=== PATIENT | male | born 1960 | race African-American/Black ===

== ENCOUNTER → 2023-01-18 | Outpatient (CLI) | payer BC ==
[2023-01-18 16:27] LABS: HCT 53.6 % (39.6-50.0); HGB 16.3 d/dL (13.0-17.0); MCH 32.2 pg (27.0-32.0); MCHC 30.4 d/dL (32.0-37.0); MCV 105.9 FL (80.0-97.0); Mean Platelet Volume 10.9 FL (9.5-12.2); NRBC Per 100 WBC 0 X 10*3/uL (0.00-0.01); Platelet Count 368 X 10*3/uL (140-440); RBC 5.06 X 10*6/uL (4.40-5.60); RDW 13.4 % (11.5-14.5); WBC 6.92 X 10*3/uL (4.50-10.00)
[2023-01-18 16:39] LABS: Blood Urea Nitrogen 20.1 mg/dL (9.0-27.0); Carbon Dioxide 23.6 mmol/L (21.6-31.8); Chloride 101 mmol/L (96-109); Potassium 5.2 mmol/L (3.5-5.5); Sodium 137 mmol/L (135-145)
[2023-01-18 16:54] LABS: Basophils # (M) 0.07 X 10*3/uL (0.00-0.10); Eosinophils # (M) 0.14 X 10*3/uL (0.04-0.35); Lymphocytes # (M) 2.91 X 10*3/uL (0.90-5.00); Macrocytosis (M) 2+; Monocytes # (M) 0.48 X 10*3/uL (0.20-1.00); Neutrophils # (M) 3.32 X 10*3/uL (1.80-7.70); Neutrophils % (M) 48 %
== END | disposition home or self-care (01) ==
LOC: LABWHC1 09:21
PROVIDERS: ATTEND Internal Medicine
DX: Z01.812 Encounter for preprocedural laboratory examination (principal); I48.0 Paroxysmal atrial fibrillation
CPT/HCPCS: 36415; 80051; 82565; 84520; 85025

== ENCOUNTER 2023-01-25 10:06 | Day surgery (SDC) | payer BC ==
[2023-01-22 13:15] VITALS: BMI 33.0
[~2023-01-25 10:06] MED LIST: LACTATED RINGERS 1,000 ML IV SCH; LIDOCAINE 1% (10MG/ML) FOR IV START INTRADERMA PRN
[2023-01-25 10:42] VITALS: TEMP 97.4
[2023-01-25] MEDS ORDERED: PROPOFOL 10 MG/ML 20 ML VIAL IV ONE (11:50)
[2023-01-25] MEDS ORDERED: LIDOCAINE 1% INJ 10MG/ML (20 ML MDV) ONE (11:50)
[2023-01-25 12:50] VITALS: BP 143/88; PULSE 105; RESP 22
--- NOTE | 2023-01-25 13:33 | P.TEE ---
Description of Procedure(s): Procedure performed: Transesophageal Echocardiogram with color flow doppler, pulsed wave doppler and continuous wave doppler Moderate conscious sedation: Moderate conscious sedation was supplied by anesthesia, see separate report. Complications: none Indications: Atrial fibrillation PROCEDURE: After the risks, benefits and alternatives of the above mentioned procedure was explained in detail with the patient, informed consent was obtained. Patient was brought to the lab in a fasting state. Patient was given sedation by anesthesia, see separate report. The throat was sprayed with Hurricane to anesthetize the throat. A lubricated Omni probe was then introduced into the esophagus and stomach and multiple views were obtained. 2D echo with color flow doppler, pulsed wave doppler and continuous wave doppler was utilized. Agitated saline bubbles were injected to assess for any intra- atrial shunt. The probe was then removed. There was thrombus noted and therefore patient no cardioversion was performed. Patient tolerated the procedure well. Patient was transferred to the post procedure area in stable and satisfactory condition. Patient did have new neck mass over last 2 months and therefore recommended to be evaluated either in the ER or with PCP soon. FINDINGS: 1. The aortic valve is tricuspid with normal function. 2. The mitral valve appears be normal with mild to moderate mitral regurgitation. 3. Tricuspid valve to be normal. 4. The interatrial septum is intact. No evidence of PFO. 5. Left atrial appendage has a large amount of smoke and what appears to be a small thrombus. 6. Left ventricle is dilated with left ventricular ejection fraction 10-15%
== END 2023-01-25 12:54 | disposition home or self-care (01) ==
LOC: OR 10:06
PROVIDERS: ATTEND Internal Medicine
DX: I48.0 Paroxysmal atrial fibrillation (principal); I34.0 Nonrheumatic mitral (valve) insufficiency; I11.0 Hypertensive heart disease with heart failure; I50.21 Acute systolic (congestive) heart failure; F17.210 Nicotine dependence, cigarettes, uncomplicated; I48.3 Typical atrial flutter; Z79.01 Long term (current) use of anticoagulants; Z79.899 Other long term (current) drug therapy
CPT/HCPCS: 93312; 93320; 93325

== ENCOUNTER 2023-01-25 12:58 | Emergency (ER) | payer BC ==
--- NOTE | 2023-01-25 13:20 | ED ---
Recheck HPI - General Chief Complaint: Recheck/Abnormal Lab/Rx Stated Complaint: Neck Swelling Time Seen by Provider: 01/25/23 12:59 Source: patient, RN notes reviewed, old records reviewed Mode of arrival: ambulatory Limitations: no limitations - History of Present Illness Initial Comments: This is a 62-year-old male to the emergency department for evaluation. Patient has significant swelling of bilateral lymph nodes of his neck coming in for evaluation of neck swelling and edema today. Patient was seen of stairs for evaluation of his heart, patient is noted that he had significant swelling of both sides of his neck. No significant pain. MD Complaint: other (Significant neck swelling) -: week(s) Symptoms Since Prior Visit: no new symptoms Associated Symptoms: none Treatments Prior to Arrival: other (0) - Related Data Home Medications Medication Instructions Recorded Confirmed Amiodarone [Cordarone] 200 mg PO DAILY 01/22/23 01/25/23 Apixaban [Eliquis] 5 mg PO BID 01/22/23 01/25/23 Metoprolol Succinate (ER) [Toprol 50 mg PO DAILY 01/22/23 01/25/23 Xl] hydroCHLOROthiazide 25 mg PO DAILY 01/22/23 01/25/23 Previous Rx's Medication Instructions Recorded Losartan [Cozaar] 25 mg PO DAILY #90 tab 01/25/23 Allergies Allergy/AdvReac Type Severity Reaction Status Date / Time No Known Allergies Allergy Verified 01/25/23 13:04 Review of Systems ROS Statement: Those systems with pertinent positive or pertinent negative responses have been documented in the HPI. ROS Other: All systems not noted in ROS Statement are negative. Past Medical History Past Medical History: Hypertension Additional Past Medical History / Comment(s): cyst on back History of Any Multi-Drug Resistant Organisms: None Reported Past Surgical History: Joint Replacement Additional Past Surgical History / Comment(s): anabella hip replacements, colonoscopy, Past Anesthesia/Blood Transfusion Reactions: No Reported Reaction Past Psychological History: No Psychological Hx Reported Smoking Status: Former smoker Past Alcohol Use History: Occasional Past Drug Use History: None Reported - Past Family History Mother Family Medical History: No Reported History General Exam Limitations: no limitations General appearance: alert, in no apparent distress Head exam: Present: atraumatic, normocephalic, normal inspection Eye exam: Present: normal appearance, PERRL, EOMI. Absent: scleral icterus, conjunctival injection, periorbital swelling ENT exam: Present: other (sitting significant swelling of neck) Neck exam: Present: normal inspection. Absent: tenderness, meningismus, ly mphadenopathy Respiratory exam: Present: normal lung sounds bilaterally. Absent: respiratory distress, wheezes, rales, rhonchi, stridor Cardiovascular Exam: Present: regular rate, normal rhythm, normal heart sounds. Absent: systolic murmur, diastolic murmur, rubs, gallop, clicks GI/Abdominal exam: Present: soft, normal bowel sounds. Absent: distended, tenderness, guarding, rebound, rigid Extremities exam: Present: normal inspection, full ROM, normal capillary refill. Absent: tenderness, pedal edema, joint swelling, calf tenderness Back exam: Present: normal inspection Neurological exam: Present: alert, oriented X3, CN II-XII intact Psychiatric exam: Present: normal affect, normal mood Skin exam: Present: warm, dry, intact, normal color. Absent: rash Course Vital Signs 01/25/23 01/25/23 01/25/23 13:01 13:51 15:30 Temperature Pulse Rate 97 76 75 Respiratory 18 16 18 Rate Blood Pressure 131/110 130/99 136/95 O2 Sat by Pulse 95 100 97 Oximetry 01/25/23 18:25 Temperature 97.8 F Pulse Rate 94 Respiratory 18 Rate Blood Pressure 142/107 O2 Sat by Pulse 98 Oximetry - Reevaluation(s) Reevaluation #1: 01/25/23 16:41 Medical records reviewed Reevaluation #2: 01/25/23 16:41 Patient symptoms unchanged Reevaluation #3: 01/25/23 16:41 Patient informed results and questions answered Reevaluation #4: 01/25/23 16:41 Was pt. sent in by a medical professional or institution (, PA, MEAT PROCESSOR, urgent care, hospital, or detention...) When possible be specific @ -no Did you speak to anyone other than the patient for history (EMS, parent, family, police, friend...)? What history was obtained from this source @ -no Did you review nursing and triage notes (agree or disagree)? Why? @ -agree Are old charts reviewed (outside hosp., previous admission, EMS record, old EKG, old radiological studies, urgent care reports/EKG's, detention records)? Report findings @ -yes Differential Diagnosis (chest pain, altered mental status, abdominal pain women, abdominal pain men, vaginal bleeding, weakness, fever, dyspnea, syncope, headache, dizziness, GI bleed, back pain, seizure, CVA, palpatations, mental health, musculoskeletal)? @ -prior EKG interpreted by me (3pts min.). @ -no X-rays interpreted by me (1pt min.). @ -no CT interpreted by me (1pt min.). @ -yes U/S interpreted by me (1pt. min.). @ -no What testing was considered but not performed or refused? (CT, X-rays, U/S, labs)? Why? @ -none What meds were considered but not given or refused? Why? @ -none Did you discuss the management of the patient with other professionals (professionals i.e. , PA, MEAT PROCESSOR, lab, RT, psych nurse, oncology social work, rn lactation consultant, teacher, safety patrol officer, case reviewer)? Give summary @ -no Was smoking cessation discussed for >3mins.? @ -no Was critical care preformed (if so, how long)? @ -no Were there social determinants of health that impacted care today? How? (Homelessness, low income, unemployed, alcoholism, drug addiction, transportation, low edu. Level, literacy, decrease access to med. care, intermediate, rehab)? @ -none Was there de-escalation of care discussed even if they declined (Discuss DNR or withdrawal of care, Hospice)? DNR status @ -no What co-morbidities impacted this encounter? (DM, HTN, Smoking, COPD, CAD, Cancer, CVA, ARF, Chemo, Hep., AIDS, mental health diagnosis, sleep apnea, morbid obesity)? @ -none Was patient admitted / discharged? Hospital course, mention meds given and route, prescriptions, significant lab abnormalities, going to OR and other pertinent info. @ - 62 male to the emergency department for evaluation of significantly enlarge d lymph nodes neck swelling and neck enlargement. Patient has no current symptoms here in the ER will be admitted for ENT to see and treat, ENT Dr. Painting did see the patient here in the emergency department and can be discharged home Discharge Undiagnosed new problem with uncertain prognosis? @ -no Drug Therapy requiring intensive monitoring for toxicity (Heparin, Nitro, Insulin, Cardizem)? @ -no Were any procedures done? @ -no Diagnosis/symptom? @ -Bilateral lymphadenopathy Acute, or Chronic, or Acute on Chronic? @ -Acute Uncomplicated (without systemic symptoms) or Complicated (systemic symptoms)? @ -Complicated Side effects of treatment? @ -no Exacerbation, Progression, or Severe Exacerbation? @ -exacerbation Poses a threat to life or bodily function? How? (Chest pain, [place], [place], pneumonia, PE, COPD, DKA, ARF, appy, cholecystitis, CVA, Diverticulitis, Homicidal, Suicidal, threat to staff... and all critical care pts) @ -yes with significant possibility of significant underlying cancer - Consultations Consultation #1: Over SHAUN to agrees to admit this patient Medical Decision Making - Medical Decision Making 62 male to the emergency department for evaluation of significantly enlarged lymph nodes neck swelling and neck enlargement. Patient has no current symptoms here in the ER will be admitted for ENT to see and treat, ENT Dr. Painting did see the patient here in the emergency department and can be discharged home - Lab Data Result diagrams: 01/25/23 13:46 01/25/23 13:46 Lab Results 01/25/23 01/25/23 01/25/23 Range/Units 13:46 13:46 13:46 WBC 8.9 (3.8-10.6) k/uL RBC 4.86 (4.30-5.90) m/uL Hgb 16.2 (13.0-17.5) gm/dL Hct 50.1 (39.0-53.0) % MCV 103.0 H (80.0-100.0) fL MCH 33.3 (25.0-35.0) pg MCHC 32.3 (31.0-37.0) g/dL RDW 13.0 (11.5-15.5) % Plt Count 321 (150-450) k/uL MPV 8.4 Neutrophils % 68 % Lymphocytes % 26 % Monocytes % 4 % Eosinophils % 1 % Basophils % 0 % Neutrophils # 6.0 (1.3-7.7) k/uL Lymphocytes # 2.3 (1.0-4.8) k/uL Monocytes # 0.3 (0-1.0) k/uL Eosinophils # 0.1 (0-0.7) k/uL Basophils # 0.0 (0-0.2) k/uL Macrocytosis Slight PT 11.1 (10.0-12.5) sec INR 1.0 (<1.2) APTT 28.7 (22.0-30.0) sec Sodium 137 (137-145) mmol/L Potassium 5.1 (3.5-5.1) mmol/L Chloride 106 (98-107) mmol/L Carbon Dioxide 20 L (22-30) mmol/L Anion Gap 11 mmol/L BUN 18 (9-20) mg/dL Creatinine 1.08 (0.66-1.25) mg/dL Est GFR (CKD-EPI)AfAm 86 (>60 ml/min/1.73 sqM) Est GFR (CKD-EPI)NonAf 74 (>60 ml/min/1.73 sqM) Glucose 101 H (74-99) mg/dL Calcium 9.9 (8.4-10.2) mg/dL Phosphorus 4.1 (2.5-4.5) mg/dL Magnesium 1.7 (1.6-2.3) mg/dL Total Bilirubin 1.5 H (0.2-1.3) mg/dL AST 39 (17-59) U/L ALT 29 (4-49) U/L Alkaline Phosphatase 91 (38-126) U/L Troponin I (0.000-0.034) ng/mL NT-Pro-B Natriuret Pep 1210 pg/mL Total Protein 8.0 (6.3-8.2) g/dL Albumin 3.9 (3.5-5.0) g/dL TSH 2.410 (0.465-4.680) mIU/L 01/25/23 Range/Units 13:46 WBC (3.8-10.6) k/uL RBC (4.30-5.90) m/uL Hgb (13.0-17.5) gm/dL Hct (39.0-53.0) % MCV (80.0-100.0) fL MCH (25.0-35.0) pg MCHC (31.0-37.0) g/dL RDW (11.5-15.5) % Plt Count (150-450) k/uL MPV Neutrophils % % Lymphocytes % % Monocytes % % Eosinophils % % Basophils % % Neutrophils # (1.3-7.7) k/uL Lymphocytes # (1.0-4.8) k/uL Monocytes # (0-1.0) k/uL Eosinophils # (0-0.7) k/uL Basophils # (0-0.2) k/uL Macrocytosis PT (10.0-12.5) sec INR (<1.2) APTT (22.0-30.0) sec Sodium (137-145) mmol/L Potassium (3.5-5.1) mmol/L Chloride (98-107) mmol/L Carbon Dioxide (22-30) mmol/L Anion Gap mmol/L BUN (9-20) mg/dL Creatinine (0.66-1.25) mg/dL Est GFR (CKD-EPI)AfAm (>60 ml/min/1.73 sqM) Est GFR (CKD-EPI)NonAf (>60 ml/min/1.73 sqM) Glucose (74-99) mg/dL Calcium (8.4-10.2) mg/dL Phosphorus (2.5-4.5) mg/dL Magnesium (1.6-2.3) mg/dL Total Bilirubin (0.2-1.3) mg/dL AST (17-59) U/L ALT (4-49) U/L Alkaline Phosphatase (38-126) U/L Troponin I <0.012 (0.000-0.034) ng/mL NT-Pro-B Natriuret Pep pg/mL Total Protein (6.3-8.2) g/dL Albumin (3.5-5.0) g/dL TSH (0.465-4.680) mIU/L - Radiology Data Radiology results: report reviewed (CT soft tissue neck is likely for ENT mass, lymphadenopathy), image reviewed Disposition Clinical Impression: Neck swelling, Neck mass, Enlarged lymph nodes Disposition: HOME SELF-CARE Condition: Fair Instructions (If sedation given, give patient instructions): Lymphadenopathy (ED) Is patient prescribed a controlled substance at d/c from ED?: No Referrals: Matt Painting MD [STAFF PHYSICIAN] - 1-2 days Time of Disposition: 16:40
[2023-01-25 13:56] LABS: Basophils % (A) 0 %; Eosinophils # (A) 0.1 k/uL (0-0.7); Eosinophils % (A) 1 %; HCT 50.1 % (39.0-53.0); HGB 16.2 gm/dL (13.0-17.5); Lymphocytes # (A) 2.3 k/uL (1.0-4.8); Lymphocytes % (A) 26 %; MCH 33.3 pg (25.0-35.0); MCHC 32.3 g/dL (31.0-37.0); Macrocytosis Slight; Mean Platelet Volume 8.4; Monocytes # (A) 0.3 k/uL (0-1.0); Monocytes % (A) 4 %; Neutrophils % (A) 68 %; Platelet Count 321 k/uL (150-450); RBC 4.86 m/uL (4.30-5.90); WBC 8.9 k/uL (3.8-10.6)
[2023-01-25 14:09] LABS: Partial Thromboplastin Time 28.7 sec (22.0-30.0); Prothrombin Time 11.1 sec (10.0-12.5)
[2023-01-25 14:15] LABS: ALT 29 U/L (4-49); African American GFR (CKD) 86 (>60 ml/min/1.73 sqM); Anion Gap 11 mmol/L; Blood Urea Nitrogen 18 mg/dL (9-20); Carbon Dioxide 20 mmol/L (22-30); Chloride 106 mmol/L (98-107); Glucose 101 mg/dL (74-99); Magnesium 1.7 mg/dL (1.6-2.3); Non-African American GFR(CKD) 74 (>60 ml/min/1.73 sqM); Phosphorus 4.1 mg/dL (2.5-4.5); Sodium 137 mmol/L (137-145); Total Bilirubin 1.5 mg/dL (0.2-1.3)
[2023-01-25 14:24] LABS: NT-Pro-B-Type Natriuretic Pept 1210 pg/mL
[2023-01-25 14:25] LABS: Albumin 3.9 g/dL (3.5-5.0); Calcium 9.9 mg/dL (8.4-10.2); Potassium 5.1 mmol/L (3.5-5.1)
[2023-01-25 14:26] LABS: AST 39 U/L (17-59); Alkaline Phosphatase 91 U/L (38-126)
--- NOTE | 2023-01-25 14:40 | CT ---
EXAMINATION TYPE: CT soft tissue neck wo con DATE OF EXAM: 01/25/2023 COMPARISON: None HISTORY: 62-year-old male Bilateral neck swelling TECHNIQUE: Contiguous axial scanning of the soft tissues of the neck without IV contrast. Coronal and sagittal reconstructions performed. CT DLP: 394.4 mGycm Automated exposure control for dose reduction was used. FINDINGS: Scattered foci of venous air present on both sides of the neck likely air introduced during periphera l line placement. However, there is abnormal soft tissue mass along the right side of the neck measuring 5.9 x 5.2 cm a butting the platysma muscle anteriorly and sternocleidomastoid muscle laterally. There is loss of the intervening fat plane with the sternocleidomastoid. The carotid space immediately. Asymmetrically la rger right submandibular space lymph nodes measures 1.1 cm. Left station 2A adenopathy measuring up to 2.7 cm. Nasopharynx appears clear. Moderate bilateral palatine tonsillar hypertrophy. Epiglottis and prevertebral soft tissues are satisfactory. Possible annular soft tissue narrowing along the level of the vocal folds, axial images 52 and 54. Visualized upper lungs appear clear. Bones: Mild/moderate degenerative disc disease C4-C5. IMPRESSION: 1. BILATERAL STATION 2A LYMPHADENOPATHY MEASURING UP TO 5.9 CM ON THE RIGHT AND 2.7 CM ON THE LEFT. A SYMMETRICALLY LARGER RIGHT SUBMANDIBULAR SPACE NODES MEASURING UP TO 1.1 CM. THE DOMINANT 5.9 CM LESIA L MASS ON THE RIGHT SHOWS LOSS OF THE INTERVENING FAT PLANE WITH THE STERNOCLEIDOMASTOID. IF THIS TUR NS OUT TO BE A NEOPLASTIC ETIOLOGY/METASTATIC DISEASE, UNABLE TO EXCLUDE ALEKSANDR EXTRACAPSULAR SPREAD. 2. SCATTERED FOCI OF VENOUS AIR ALONG BOTH SIDES OF THE NECK LIKELY AIR INTRODUCED DURING PERIPHERAL LINE PLACEMENT.
--- NOTE | 2023-01-25 15:55 | CT ---
EXAMINATION TYPE: CT soft tissue neck w con DATE OF EXAM: 01/25/2023 COMPARISON: Earlier today HISTORY: 62-year-old male with mass and neck swelling, Bilateral neck swelling TECHNIQUE: Contiguous axial scanning of the soft tissues of the neck performed with IV Contrast, anderson ent injected with 100 mL of Isovue 370. Coronal and sagittal reconstructions performed. CT DLP: 417.1 mGycm Automated exposure control for dose reduction was used. FINDINGS: Solid mildly enhancing masses are redemonstrated measuring up to 6.1 cm right gestation to a and eliza sly underestimated on the noncontrast study on the left measuring up to 6.3 cm. Loss of the fat plane with the adjacent. Additional smaller but enlarged lymph nodes are evident on both sides of the upper to mid neck. Again , we note loss of intervening fat plane with the overlying sternocleidomastoid muscle. On the left, a lso loss of the fat plane with the posterior left paraspinal musculature. There is lobulated enlargement of the bilateral palatine tonsils and mucosal space at the junction of the nasopharyngeal and oropharyngeal airway, axial images 57 and 52. Some distortion of the aryepiglottic folds also present axial image 38. Bones: Degenerative change sternoclavicular joints. No osseous destructive process seen. Some scatter ed periodontal disease noted. IMPRESSION: 1. EXTENSIVE UPPER CERVICAL LYMPHADENOPATHY MEASURING UP TO 6.1 CM ON THE RIGHT AND GROSSLY UNDERESTI MATED ON THE NONCONTRAST EXAM EARLIER TODAY ON THE LEFT. MEASURING UP TO 6.3 CM ON THE LEFT. UNABLE T O EXCLUDE EXTRACAPSULAR SPREAD OF NEOPLASM INTO THE OVERLYING STERNOCLEIDOMASTOID MUSCLES ON BOTH STEVE ES AND THE LEFT POSTERIOR PARASPINAL MUSCULATURE ON THE LEFT. 2. SOFT TISSUE THICKENING CERVICAL MUCOSAL SPACE AT THE JUNCTION OF THE NASOPHARYNX AND OROPHARYNX AL YOVANI WITH THICKENING AT THE BILATERAL PALATINE TONSILS. SOME DISTORTION OF THE ARYEPIGLOTTIC FOLDS ALS O PRESENT. THESE MAY CORRESPOND TO SITES OF PRIMARY NEOPLASM. DIRECT VISUALIZATION IS ADVISED.
[2023-01-25] MEDS ORDERED: MORPHINE SULFATE 4 MG/ML SYRINGE IV PRN (16:38)
[2023-01-25] MEDS ORDERED: NALOXONE 0.4 MG/ML 1 ML VIAL IV PRN (16:38)
[2023-01-25] MEDS ORDERED: ONDANSETRON 4 MG/2 ML VIAL IVP PRN (16:38)
[2023-01-25] MEDS ORDERED: SODIUM CHLORIDE 0.9% 1,000 ML IV SCH (16:45)
[2023-01-25 18:43] VITALS: BP 142/107; PULSE 94; RESP 18; TEMP 97.8
[2023-01-26] MEDS ORDERED: PANTOPRAZOLE 40 MG/10 ML VIAL IV SCH (09:00)
--- NOTE | 2023-01-28 02:50 | CONS ---
CONSULTATION REASON FOR THE CONSULTATION: Neck mass. HISTORY OF PRESENT ILLNESS: This patient is a very pleasant 62-year-old male who presented to the emergency room complaining of having shortness of breath and also swelling in his neck. The patient states that the swelling has been there for several months and has apparently increased. He smokes less than a pack of cigarettes per day and states he is definitely going to quit. He denies any difficulty swallowing, any referred otalgia, or hoarseness. The patient states that the swelling initially started out as a small lump on the right side of his neck. He does not have a primary care physician. I was consulted by the emergency room physician after completing my surgical procedures. I therefore saw this patient in the emergency room. A CT scan was performed in the emergency room with and without contrast, which showed evidence of bilateral neck mass, bilateral solid neck masses, right side greater than the left, each being greater than 6 cm. PAST MEDICAL HISTORY: Reveals the patient has no known allergies to medications. CURRENT MEDICATIONS: Include hydrochlorothiazide, metoprolol, losartan, Eliquis, and Cordarone. REVIEW OF SYSTEMS: CARDIOVASCULAR: Positive for hypertension and atrial fibrillation. RESPIRATORY: Negative. GASTROINTESTINAL: Negative. Metabolic, endocrine, and remainder of the review of systems is essentially unremarkable. SOCIAL HISTORY: The patient smokes less than a half a pack surgical day and states he is definitely going to quit. PHYSICAL EXAMINATION: GENERAL: This patient is a 62-year-old male who is alert and cooperative. HEENT EXAMINATION: The patient is normocephalic. Tympanic membranes are normal. Middle ear spaces are free of any fluid or infection. Pupils equal, round, and reactive to light and accommodation. Extraocular movements are within normal limits. Intranasal examination reveals moderate septal deviation to the left with compensatory hypertrophy of inferior turbinates bilaterally. Examination of the oropharynx reveals 3 to 4+ tonsillar hypertrophy bilaterally. NECK: Palpation of the neck reveals significant bilateral neck masses/lymphadenopathy. These masses are solid, fixed, nonfluctuant , and nontender. They encompass most of the right and left anterior triangle of the neck. In addition to this, the right submandibular gland feels slightly larger than the left submandibular gland. NEUROLOGIC: Cranial nerves 2 through 12, remainder of the head and neck exam is unremarkable. CHEST AND CARDIOVASCULAR: Both lung villalba are clear to percussion and auscultation. Patient is in regular sinus rhythm. S1, S2 are present. No murmurs, S3s or S4s. Peripheral pulses are bilaterally symmetrical. ABDOMEN: There ARE no evidence of any masses, megaly, or tenderness abdomen. The abdomen is soft. The remainder of physical exam is unremarkable. ASSESSMENT: Bilateral neck mass, suspect malignancy. PLAN: The patient will follow up in my office for further examination and studies. I advised the patient that most likely, he will have to undergo possibly a needle biopsy to possibly determine the etiology of the neck masses. Unfortunately because of his history of smoking, I am concerned about the possibility of a metastatic malignancy. I want to take this opportunity to thank you for allowing me to assist in the care of your patient. If I could be of any further assistance, please feel free to call my office. The patient has been advised to call my office on Saturday to schedule an appointment. MISSY / APRIL: [phone] /
== END 2023-01-25 18:25 | disposition home or self-care (01) ==
LOC: EC 12:58 → UNDOADMIN 16:38 → 5NMEDONC 16:38 → EC 18:25
DX: R59.1 Generalized enlarged lymph nodes (principal); I10 Essential (primary) hypertension; Z87.891 Personal history of nicotine dependence; Z79.899 Other long term (current) drug therapy
CPT/HCPCS: 36415; 83880; 80053; 83735; 84100; 84443; 84484; 85025; 85610; 85730; 70490; 70491; 99284; Q9967

== ENCOUNTER 2023-03-04 08:55 | Day surgery (SDC) | payer BC ==
[2023-03-04 09:56] VITALS: TEMP 98.3
[2023-03-04 10:27] VITALS: BP 145/100; PULSE 84; RESP 17
--- NOTE | 2023-03-04 10:57 | US ---
ULTRASOUND GUIDED CORE BIOPSY OF BILATERAL NECK MASSES: CLINICAL HISTORY: Request for biopsy right and left neck mass FINDINGS: The procedure was explained to the patient. The risks, complications, benefits and alternatives were discussed and any questions were answered. Informed consent was obtained. Patient was placed supin e on the ultrasound table and prepped and draped in the usual sterile fashion. Utilizing a 18 gauge needle, two passes were made into the left neck mass single pass was made into the right neck mass. Patient was stable throughout the procedure. Pathology is pending. All elements of maximal barrier technique were utilized. IMPRESSION: 1. Successful ultrasound guided core biopsy bilateral neck mass.
== END 2023-03-04 10:30 | disposition home or self-care (01) ==
LOC: RADPROMAIN 08:55
PROVIDERS: ATTEND Otolaryngology
DX: R22.1 Localized swelling, mass and lump, neck (principal); C44.92 Squamous cell carcinoma of skin, unspecified
CPT/HCPCS: 21550; 88305; 88341; 88342

== ENCOUNTER → 2023-05-03 | Outpatient (CLI) | payer BC ==
--- NOTE | 2023-05-05 09:42 | PE ---
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 Images are reviewed on the computer in the coronal, ax ial, and sagittal planes. Reconstructed rotating images are created on independent workstation and r eviewed on the computer. A non-contrast CT is performed in conjunction with the PET scan. Glucose l evel 108 mg/dL CT DLP: 1039 mGycm, Automated exposure control for dose reduction was used. COMPARISON: CT 01/25/2023, 12/11/2022, PET/CT None, FINDINGS: Mediastinal SUV mean is 3.7. Hepatic parenchyma SUV mean is 2.6. SKULL BASE AND NECK: Extensive lymphadenopathy within the neck , examples include: * Right Level 2 conglomerate dominant lymphadenopathy 7.0 x 6.2 m max SUV 21.5. * Left Level 2 conglomerate dominant lymphadenopathy 7.6 x 5.4 cm Max SUV 16.4. * Left level 5 lymph nodes present max SUV 8.48 measuring up to 8 mm in short axis. * Focus of uptake possibly in the left posterolateral pharyngeal recess versus some mucosal lymph no de SUV 17.3 poorly visualized and noncontrast CT. * Additional lesion along the mucosa near midline max SUV 615.8 years just superior to the epiglotti s possibly attached to the posterior oropharynx wall. CHEST, MEDIASTINUM, AND HILAR REGION: No suspicious radiotracer activity. ABDOMEN AND PELVIS: No suspicious radiotracer activity. MUSCULOSKELETAL STRUCTURES: No suspicious radiotracer activity. OTHER CT: Large lymphadenopathy in the neck as described above. Atherosclerosis of the arterial vascu lature. Heart is mildly enlarged for size. Mild bilateral gynecomastia. Layering gallstones in the gallbladde r lumen. Colonic diverticulosis. Bilateral hip arthroplasties with hardware intact. 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
== END | disposition home or self-care (01) ==
LOC: RADPETMAIN 09:22
PROVIDERS: ATTEND Internal Medicine Hematology & Oncology
DX: J39.2 Other diseases of pharynx (principal); C76.0 Malignant neoplasm of head, face and neck
CPT/HCPCS: 78815; A9552

== ENCOUNTER 2024-01-16 07:51 | Day surgery (SDC) | payer BC ==
[2024-01-16 09:04] VITALS: BP 114/65; PULSE 65; RESP 16; TEMP 98
--- NOTE | 2024-01-16 11:33 | US ---
EXAMINATION TYPE: US discontinued FNA panel DATE OF EXAM: 01/16/2024 9:31 AM CLINICAL INDICATION:Male, 63 years old with history of R22.1 localized swelling/mass/lump neck; COMPARISON: Correlation PET/CT 09/18/2023 and 05/03/2023 ATTENDING: Dr. Carranza TECHNIQUE: Initial targeted ultrasound along the right side of the neck targeted to the patient direc leno palpable site. FINDINGS: Directly at the patient's scar along the right side of the neck, there is a circumscribed, oval echog enic nodule measuring 8 mm. This appears to be located within the skin surface and may correspond to scar tissue. No other solid or cystic lesion is identified for potential target to biopsy. IMPRESSIONS: Right neck biopsy is being deferred at this time. A tiny 8 mm oval echogenic area within the skin is located at the patient's scar at the patient directed palpable site. Given the small size and locatio n within the skin, finding may represent scar tissue and would be technically challenging for percuta neous biopsy. Recommend surveillance follow-up ultrasound in 3-4 weeks. If any suspicious changes, bi opsy can be performed at that time. [facility], , 01/16/2024 11:31 AM
== END 2024-01-16 10:00 | disposition home or self-care (01) ==
LOC: RADPROMAIN 07:51
PROVIDERS: ATTEND Radiology Diagnostic Radiology
DX: R22.1 Localized swelling, mass and lump, neck (principal)
CPT/HCPCS: 76536

== ENCOUNTER 2024-02-12 07:54 | Day surgery (SDC) | payer BC ==
[2024-02-12 08:50] VITALS: BP 138/86; PULSE 88; RESP 16; TEMP 98.1
--- NOTE | 2024-02-12 10:41 | US ---
EXAMINATION TYPE: US discontinued FNA panel DATE OF EXAM: 02/12/2024 10:04 AM COMPARISON: None. CLINICAL INDICATION: Male, 63 years old with history of R22.1 LOCALIZED SWELLING, MASS AND LUMP, NECK ; , thyroid nodule TECHNIQUE/FINDINGS: Preliminary imaging demonstrated a stable hyperechoic subcutaneous 8 mm nodule. The patient wished to defer biopsy. Therefore, procedure discontinued. IMPRESSION: 1. Patient deferred biopsy. Commend three-month follow-up ultrasound. [facility], , 02/12/2024 10:39 AM
== END 2024-02-12 09:35 | disposition home or self-care (01) ==
LOC: RADPROMAIN 07:54
PROVIDERS: ATTEND Otolaryngology
DX: R22.1 Localized swelling, mass and lump, neck (principal)
CPT/HCPCS: 76536